=== PATIENT | male | born 1990 | race Caucasian/White ===

== ENCOUNTER 2018-06-29 22:33 | Emergency (ER) | payer SELFPAY ==
[2018-06-29 22:45] VITALS: TEMP 97.7; BMI 22.6
--- NOTE | 2018-06-29 23:17 | PDOC ---
*Physical Exam - Vital Signs Last Vital Signs Temp Pulse Resp BP Pulse Ox 97.7 F 71 17 113/68 98 06/29/18 22:37 06/29/18 22:37 06/29/18 22:37 06/29/18 22:37 06/29/18 22:37 Medical Decision Making - Medical Decision Making 06/29/18 23:16 Patient seen by the advanced practice provider under my direct supervision. Ancillary testing reviewed as necessary. I agree with plan as outlined by the advanced practice provider. *DC/Admit/Observation/Transfer Diagnosis at time of Disposition: Cellulitis and abscess of leg - Prescriptions Prescriptions: Cephalexin Monohydrate [Keflex -] 250 mg PO Q6H #28 capsule Ibuprofen 600 mg PO QID PRN #20 tablet PRN Reason: Pain - Referrals - Patient Instructions Printed Discharge Instructions: DI for Wound Infection Additional Instructions: take warm showers and warm compress to the area. take cephalexin as prescribed. follow up with your doctor or return to the ER in 2 days for a wound check take ibuprofen 600mg every 6 hours as needed for pain Additional Instructions: * Please call your personal physician to report your Emergency Department visit and to report your progress, if any. * If there is no improvement in symptoms in 2 days call your physician. * Return to the Emergency Department for any worsening symptoms. - Post Discharge Activity Forms/Work/School Notes: Back to Work
--- NOTE | 2018-06-29 23:18 | PDOC ---
History of Present Illness - General Chief Complaint: Wound Stated Complaint: CYST Time Seen by Provider: 06/29/18 23:14 History Source: Patient - History of Present Illness Initial Comments: 06/29/18 23:15 27 year old male with abscess to left inner thigh x 4 days, patient reports that pus drainage is noted continue to have a lot of pain. denies urinary symptoms or testicular pain no pmhx. Past History - Past Medical History Allergies/Adverse Reactions: Allergies Allergy/AdvReac Type Severity Reaction Status Date / Time No Known Allergies Allergy Verified 06/29/18 22:40 Home Medications: Ambulatory Orders Albuterol Sulfate Inhaler - [Ventolin HFA Inhaler -] 2 inh IH Q6H #1 inh Sulfamethoxazole/Trimethoprim [Bactrim *Ds*] 1 tab PO BID #14 tablet 04/01/14 predniSONE [Deltasone -] 40 mg PO DAILY #14 tablet 04/01/14 Cephalexin Monohydrate [Keflex -] 250 mg PO Q6H #28 capsule 06/29/18 Ibuprofen 600 mg PO QID PRN #20 tablet 06/30/18 Asthma: Yes COPD: No - Surgical History Abdominal Surgery: Yes (hernia) Appendectomy: Yes - Suicide/Smoking/Psychosocial Hx Smoking History: Never smoked Have you smoked in the past 12 months: No Information on smoking cessation initiated: No Hx Alcohol Use: Yes Drug/Substance Use Hx: Yes Review of Systems - Review of Systems Able to Perform ROS?: Yes Is the patient limited Czech proficient: No Constitutional: No: Symptoms Reported, See HPI, Chills, Diaphoresis, Fever, Loss of Appetite, Malaise, Night Sweats, Weakness, Weight Stable, Unintentional Wgt. Loss, Unexplained wgt Loss, Other Integumentary: Yes: Erythema ( and abscess to left inner thigh) *Physical Exam - Vital Signs Last Vital Signs Temp Pulse Resp BP Pulse Ox 97.7 F 71 17 113/68 98 06/29/18 22:37 06/29/18 22:37 06/29/18 22:37 06/29/18 22:37 06/29/18 22:37 - Physical Exam General Appearance: Yes: Appropriately Dressed Integumentary: positive: Normal Color, Other (fluctuant mass to left inner upper thigh) Neurologic: positive: Fully Oriented, Alert Procedures - Incision and Drainage I&D Site: Left: Leg (fluctuant mass to inner groin) Anesthesia: 1% Lidocaine Blade Size: 11 Iodinated Packin/ in Plain Packing: Yes Dressing: Yes Progress Note - Progress Note Progress Note: A: abscess P: I& D see procedure note *DC/Admit/Observation/Transfer Diagnosis at time of Disposition: Cellulitis and abscess of leg - Prescriptions Prescriptions: Cephalexin Monohydrate [Keflex -] 250 mg PO Q6H #28 capsule Ibuprofen 600 mg PO QID PRN #20 tablet PRN Reason: Pain - Referrals - Patient Instructions Printed Discharge Instructions: DI for Wound Infection Additional Instructions: take warm showers and warm compress to the area. take cephalexin as prescribed. follow up with your doctor or return to the ER in 2 days for a wound check take ibuprofen 600mg every 6 hours as needed for pain Additional Instructions: * Please call your personal physician to report your Emergency Department visit and to report your progress, if any. * If there is no improvement in symptoms in 2 days call your physician. * Return to the Emergency Department for any worsening symptoms. - Post Discharge Activity Forms/Work/School Notes: Back to Work
[2018-06-30] MEDS ORDERED: CEPHALEXIN MONOHYDRATE 500 MG CAPSULE (UD) PO ONE (00:53)
[2018-06-30] MEDS ORDERED: IBUPROFEN 600 MG TABLET (FP) PO ONE ×2 (00:53→01:11)
[2018-06-30] MEDS ORDERED: CEPHALEXIN MONOHYDRATE 500 MG CAPSULE (UD) ONE (01:10)
[2018-06-30 01:24] VITALS: BP 110/70; PULSE 70
== END 2018-06-30 01:15 | disposition home or self-care (01) ==
LOC: JER 22:33
PROC: 0J9M0ZZ Drainage of Left Upper Leg Subcutaneous Tissue and Fascia, Open Approach (ICD-10-PCS; principal; 2018-06-29)
DX: L02.416 Cutaneous abscess of left lower limb (principal)
CPT/HCPCS: 99282-25

== ENCOUNTER 2018-07-02 22:55 | Emergency (ER) | payer SELFPAY ==
[2018-07-02 22:59] VITALS: BP 104/69; PULSE 66; TEMP 98.3; BMI 21.9
--- NOTE | 2018-07-02 23:35 | PDOC ---
Attending Attestation - Resident Resident Name: JuniorshahriarClaudySabino - ED Attending Attestation I have performed the following: I have examined & evaluated the patient, The case was reviewed & discussed with the resident, I agree w/resident's findings & plan, Exceptions are as noted - HPI HPI: 07/02/18 23:44 27yo male with a L groin abscess s/p I&D on 06/29 who presents for a wound check. - Physicial Exam PE: 07/02/18 23:44 Gen: aaox3, nad skin: L groin fold with small 2cm indurated region- no drainage, no warmth, mild erythema, no fluctuance, improving from prior visit - Medical Decision Making 07/02/18 23:35 I, Dr. Jaqueline Bowden, DO, attest that this document has been prepared under my direction and personally reviewed by me in its entirety. I further attest, that it accurately reflects all work, treatment, procedures and medical decision -making performed by me. 07/02/18 23:40 a/p: 27yo male s/p i&d 3 days ago presents for a wound check -packing has fallen out -pt is not taking the abx -mild redness -induration to the L groin- no drainage -will perform bedside ultrasound of the soft tissue to eval for a poss abscess -will discuss the need to take abx -denies fevers -pt is nontoxic in appearance 07/02/18 23:43 bedside ultrasound does not show an acute abscess discussed need for abx stable to dc to home and for local wound care and oral abx
--- NOTE | 2018-07-02 23:44 | PDOC ---
History of Present Illness - General Chief Complaint: Revisit,Wound Recheck Stated Complaint: DRAINAGE TO BE TAKEN OUT Time Seen by Provider: 07/02/18 23:34 - History of Present Illness Initial Comments: 07/02/18 23:44 Mr. Muse is a 27 yo male w/ no significant pmh who presents for wound check. Patient had Left inner groin abbess that was drained on 06/29 in this ER and told to present for wound recheck. Patient reports packing fell out yesterday on its own. Denies any fever, further pain at site, chills, or other symptoms. Was proscribed keflex at initial evaluation however reports he has not taken it nor filled the prescription. The patient denies chest pain, shortness of breath, headache and dizziness. Denies fever, chills, nausea, vomit, diarrhea and constipation. Denies dysuria, frequency, urgency and hematuria. Past History - Past Medical History Allergies/Adverse Reactions: Allergies Allergy/AdvReac Type Severity Reaction Status Date / Time No Known Allergies Allergy Verified 07/02/18 22:59 Home Medications: Ambulatory Orders Albuterol Sulfate Inhaler - [Ventolin HFA Inhaler -] 2 inh IH Q6H #1 inh Sulfamethoxazole/Trimethoprim [Bactrim *Ds*] 1 tab PO BID #14 tablet 04/01/14 predniSONE [Deltasone -] 40 mg PO DAILY #14 tablet 04/01/14 Cephalexin Monohydrate [Keflex -] 250 mg PO Q6H #28 capsule 06/29/18 Ibuprofen 600 mg PO QID PRN #20 tablet 06/30/18 Asthma: Yes COPD: No - Surgical History Abdominal Surgery: Yes (hernia) Appendectomy: Yes - Suicide/Smoking/Psychosocial Hx Smoking History: Never smoked Have you smoked in the past 12 months: No Hx Alcohol Use: No Drug/Substance Use Hx: No Review of Systems - Review of Systems Comments:: 07/02/18 23:47 GENERAL/CONSTITUTIONAL: No fever or chills. No weakness. HEAD, EYES, EARS, NOSE AND THROAT: No change in vision. No ear pain or discharge. No sore throat. CARDIOVASCULAR: No chest pain or shortness of breath RESPIRATORY: No cough, wheezing, or hemoptysis. GASTROINTESTINAL: No nausea, vomiting, diarrhea or constipation. GENITOURINARY: No dysuria, frequency, or change in urination. MUSCULOSKELETAL: No joint or muscle swelling or pain. No neck or back pain. SKIN: No rash NEUROLOGIC: No headache, vertigo, loss of consciousness, or change in strength/ sensation. ENDOCRINE: No increased thirst. No abnormal weight change HEMATOLOGIC/LYMPHATIC: No anemia, easy bleeding, or history of blood clots. ALLERGIC/IMMUNOLOGIC: No hives or skin allergy. *Physical Exam - Vital Signs Last Vital Signs Temp Pulse Resp BP Pulse Ox 98.3 F 66 18 104/69 95 07/02/18 22:57 07/02/18 22:57 07/02/18 22:57 07/02/18 22:57 07/02/18 22:57 - Physical Exam Comments: 07/02/18 23:47 GENERAL: Awake, alert, and fully oriented, in no acute distress HEAD: No signs of trauma, normocephalic, atraumatic EYES: PERRLA, EOMI, sclera anicteric, conjunctiva clear ENT: Auricles normal inspection, hearing grossly normal, nares patent, oropharynx clear without exudates. Moist mucosa NECK: Normal ROM, supple, no lymphadenopathy, JVD, or masses LUNGS: No distress, speaks full sentences, clear to auscultation bilaterally HEART: Regular rate and rhythm, normal S1 and S2, no murmurs, rubs or gallops, peripheral pulses normal and equal bilaterally. ABDOMEN: Soft, nontender, normoactive bowel sounds. No guarding, no rebound. No masses EXTREMITIES: +Small 2 cm well healing incision site at L groin, closed, no surrounding erythma or warmth. Non-tender.Normal inspection, Normal range of motion, no edema. No clubbing or cyanosis. NEUROLOGICAL: Cranial nerves II through XII grossly intact. Normal speech, normal gait, no focal sensorimotor deficits SKIN: Warm, Dry, normal turgor, no rashes or lesions noted. Medical Decision Making - Medical Decision Making 07/02/18 23:48 Mr. Muse is a 27 yo male w/ pmh as described who presents for evaluation of wound check. Wound well appearing with no fever, no warmth at site, no redness or other concerning symptoms. Patient counseled extensively that he should take the antibiotics proscribed. No concern for acute process at this time. Patient verbalized he will begin taking ABX. Discharging to home for further outpatient f/u. *DC/Admit/Observation/Transfer Diagnosis at time of Disposition: Wound check, abscess - Discharge Dispostion Disposition: HOME - Referrals - Patient Instructions Printed Discharge Instructions: DI for Wound Infection Additional Instructions: You were evaluated today in the ER for your abscess. No concerning findings were found at this time. Please take antibiotics previously proscribed as discussed. Follow-up with your primary care provider for further evaluation. Return to ER if any fever, chills, pain, or other concerning symptoms. - Post Discharge Activity
== END 2018-07-03 00:12 | disposition home or self-care (01) ==
LOC: JER 22:55
DX: Z48.817 Encounter for surgical aftercare following surgery on the skin and subcutaneous tissue (principal)
CPT/HCPCS: 99281-25